=== PATIENT | male | born 1980 | race Caucasian/White ===

== ENCOUNTER 2019-12-18 10:59 | Outpatient (CLI) | payer OTHER, SELFPAY ==
--- NOTE | 2019-12-18 11:04 | CT_ITS ---
WS: [id number] CT CERVICAL SPINE HISTORY: NECK PAIN TECHNIQUE: Contiguous 2.5 mm axial imaging performed through the entire cervical spine. Sagittal and coronal reformats also performed. All CT scans at [facility] use at least one of these do se optimization techniques: automated exposure control; mA and/or kV adjustment per patient size (inc ludes targeted exams where dose is matched to clinical indication); or iterative reconstruction. DLP: 1596.1 mGycm COMPARISON: MRI 05/17/2018 Posterior alignment is normal. Lateral masses of C1 and C2 are aligned. Cranial cervical junction is normal. C2-C3: Normal. C3-C4: Normal. C4-C5: Normal. C5-C6: Very slight osteophytic ridging. Moderate RIGHT and minimal LEFT foraminal narrowing. C6-C7: Mild osteophytic ridging without stenosis. C7-T1: Normal. Soft tissues are normal. Lung apices are clear. CT/CT cervical spin wo con* [id number] IMPRESSION: 1. No acute fracture. 2. Moderate RIGHT and minimal LEFT foraminal narrowing at C5-6. Stenosis is no t quite as significant as indicated on the study from 05/17/2018. 3. No central disc protrusions.
== END 2019-12-18 11:00 | disposition home or self-care (01) ==
LOC: RADWPI 11:03
PROVIDERS: Family Provider Family Medicine; PCP Family Medicine; Visit Provider Nurse Practitioner
DX: M48.02 Spinal stenosis, cervical region (principal); M54.2 Cervicalgia
CPT/HCPCS: 72125

== ENCOUNTER → 2020-02-03 14:15 | Outpatient (BNVA) | payer OTHER, SELFPAY | PROVIDERS: Family Provider Family Medicine; PCP Family Medicine; Referring Provider Nurse Practitioner; Visit Provider Anesthesiology Pain Medicine | DX: M47.812 Spondylosis without myelopathy or radiculopathy, cervical region (principal); M54.81 Occipital neuralgia; M79.18 Myalgia, other site; Z79.891 Long term (current) use of opiate analgesic | CPT/HCPCS: 20553; 99204; 99205; J1030; J3490 ==

== ENCOUNTER → 2020-02-20 10:07 | Outpatient (BNVA) | payer OTHER, SELFPAY | PROVIDERS: Family Provider Family Medicine; PCP Family Medicine; Visit Provider Anesthesiology Pain Medicine | DX: M54.81 Occipital neuralgia (principal); M47.812 Spondylosis without myelopathy or radiculopathy, cervical region | CPT/HCPCS: 99213 ==

== ENCOUNTER → 2020-05-22 09:32 | Outpatient (BNVA) | payer OTHER, SELFPAY | PROVIDERS: Family Provider Family Medicine; PCP Family Medicine; Visit Provider Registered Nurse | DX: G43.709 Chronic migraine without aura, not intractable, without status migrainosus (principal); Z79.1 Long term (current) use of non-steroidal anti-inflammatories (NSAID) | CPT/HCPCS: 80053 ==

== ENCOUNTER → 2021-06-04 08:49 | Outpatient (BNVA) | payer SELFPAY | PROVIDERS: Family Provider Family Medicine; PCP Registered Nurse; Visit Provider Registered Nurse | DX: Z79.1 Long term (current) use of non-steroidal anti-inflammatories (NSAID) (principal) | CPT/HCPCS: 80053 ==

== ENCOUNTER 2021-11-15 08:07 | Outpatient (CLI) | payer OTHER, SELFPAY ==
--- NOTE | 2021-11-15 08:29 | MR_ITS ---
WS: [id number] MRI LUMBAR SPINE NONCONTRAST TECHNIQUE: Sagittal T1, T2 and STIR imaging. Axial T1 and T2 imaging. CLINICAL INFORMATION: VERTEBROGEMIC LOW BACK PAIN COMPARISON: None. FINDINGS: Normal lumbar alignment. No acute compression. No high-grade central canal stenosis. Endplate Schmorl 's nodes superior endplates T4 and T5 with slight edema. Small amount of edema in the inferior endpla te T2. L1-L2: Normal. L2-L3: Mild annular bulging. Mild facet arthropathy. Spinal canal and foramen are patent. L3-L4: Slight annular bulging. Mild facet arthropathy. Spinal canal and foramen are patent. L4-L5: Mild annular bulging. Mild facet arthropathy. Slight effacement of ventral thecal sac. Slight narrowing of the subarticular recess bilaterally. Spinal canal and foramen are patent. L5-S1: Minimal annular bulging. Mild facet arthropathy. Spinal canal and foramen are patent. Visualized pelvic bony structures: Normal. Paravertebral soft tissues: Normal. MR/MR lumbar spine wo con* [id number] IMPRESSION: 1. Mild lumbar curve. No acute compression. No high-grade central canal stenos is. 2. Slight annular bulging L4-L5 with encroachment traversing RIGHT greater enrique n LEFT L5 nerve roots. Correlation for L5 nerve root symptoms. 3. Spinal canal and foramen are otherwise patent. 4. Mild facet arthropathy L3-L5. 5. Schmorl's nodes in the superior endplates at T4 and T5 with slight edema. S mall amount of edema in the inferior endplate at T2.
--- NOTE | 2021-11-15 08:29 | XR_ITS ---
WS: [email or web address] Exam: XR lumbar spine f/e only [id number] Date/Time of Exam: 11/15/2021 8:29 AM Reason For Exam: VERTEBROGENIC LOW BACK PAIN No fracture or dislocation. Disc spaces are preserved. Posterior elements are intact. No flexion or e xtension instability. XR/XR lumbar spine f/e only [id number] IMPRESSION: 1. No fracture or instability identified.
== END 2021-11-15 08:08 | disposition home or self-care (01) ==
PROVIDERS: Visit Provider Anesthesiology Pain Medicine
DX: M51.26 Other intervertebral disc displacement, lumbar region (principal); M47.816 Spondylosis without myelopathy or radiculopathy, lumbar region; M51.44 Schmorl's nodes, thoracic region
CPT/HCPCS: 72120; 72148

== ENCOUNTER 2023-01-05 11:33 | Outpatient (CLI) | payer OTHER, SELFPAY ==
--- NOTE | 2023-01-05 11:53 | XR_ITS ---
WS: [email or web address] EXAMINATION: XR cervical spine fl/ex [id number] REASON FOR EXAM: CERVICALGIA COMPARISON: None available. FINDINGS: There is no sign of acute fracture or subluxation. Vertebral body heights and intervertebral disc sp aces are maintained. The cervical bony alignment and osseous densities appear normal. There is no p revertebral soft tissue change. Cervical motion on flexion is normal but appear to be limited on exte nsion to essentially a neutral appearance XR/XR cervical spine fl/ex [id number] IMPRESSION: No acute osseous abnormality. Limited cervical motion on extension
--- NOTE | 2023-01-05 11:53 | MR_ITS ---
WS: [id number] MRI CERVICAL SPINE NONCONTRAST HISTORY: CERVICALGIA COMPARISON: 05/17/2018 Technique: Multiplanar, multisequence noncontrast imaging of the cervical spine. Normal cervical alignment with no compression fracture or significant disc space narrowing. Signal within the cervical cord is normal. Visualized posterior fossa is unremarkable. Craniocervical junction, C1 and C2 relationship, odontoid process and soft tissues are normal. C2-C3: Normal. C3-C4: Small bilateral foraminal osteophytes. No significant stenosis. The osteophyte burden has incr eased since 2018. C4-C5: Small foraminal osteophytes. No stenosis. C5-C6: Small bilateral foraminal osteophytes. Mild facet arthritis. Mild to moderate bilateral forami nal stenosis. C6-C7: Small bilateral foraminal osteophytes. Only mild stenosis. C7-T1: Mild facet joint arthritis bilaterally. No stenosis. Paraspinal soft tissue are normal. MR/MR cervical spin wo con* [id number] IMPRESSION: 1. No significant progression of osteophytosis or disc protrusions since the p rior study. No central stenosis. 2. Mild to moderate bilateral foraminal stenosis at C5-6. Very similar to the prior study from 2018. 3. Small bilateral foraminal osteophytes at C3-4, C4-5 and C6-7 with only mini mal encroachment upon the foramina.
== END 2023-01-05 11:34 | disposition home or self-care (01) ==
PROVIDERS: PCP Registered Nurse; Visit Provider Anesthesiology Pain Medicine
DX: M48.02 Spinal stenosis, cervical region (principal); M25.78 Osteophyte, vertebrae
CPT/HCPCS: 72040; 72141

== ENCOUNTER 2024-10-16 20:00 | Outpatient (CLI) | payer OTHER, SELFPAY | END 2024-10-16 20:01 | disposition home or self-care (01) | LOC: SLEEP 23:30 | PROVIDERS: PCP Registered Nurse; Visit Provider Nurse Practitioner Family | DX: G47.33 Obstructive sleep apnea (adult) (pediatric) (principal); G47.36 Sleep related hypoventilation in conditions classified elsewhere | CPT/HCPCS: 95810 ==